=== PATIENT | male | born 1990 | race Caucasian/White ===

== ENCOUNTER 2019-09-14 15:24 | Emergency (ER) | payer OTHER ==
[~2019-09-14] VITALS: Ht 185.4 cm; Wt 88.5 kg
--- NOTE | ~2019-09-14 | EKG ---
[place] [address] ELECTROCARDIOGRAM REPORT Name: RUTHERFORDMARTINRENETTA VILLEGAS II Room: [facility]#: [id number] Admission: 09/14/19 Attend Phys: Discharge: Date of : 89 Date of Service: 09/14/191640 Report #: [id number] THIS REPORT FOR: cc: FAM - No family physician/PCP FAM - No family physician/PCP Lee Howard MD ~ THIS REPORT FOR: //name// [facility] ED Test Date: 2019-09-14 Test Time: 16:41:21 Pat Name: MARTIN RUTHERFORD Department: Room: Gender: M Web Development Intern: FABBY : 1990 Requested By: Dora Jimenez Order Number: [id number] MD: Measurements Intervals [place] Rate: 66 P: 35 SC: 172 QRS: 41 QRSD: 111 T: 45 QT: 370 QTc: 388 Interpretive Statements Sinus rhythm RSR' in V1 or V2, probably normal variant ST elev, probable normal early repol pattern No previous ECG available for comparison [email or web address] By: 40 164 [facility], [place] /[place]
[~2019-09-14 15:24] MED LIST: BACTRIM DS TAB1 EACH PO; HYDROCODONE-AP1 EAC6 PO; IBUPROFEN 600600 M1 PO; IBUPROFEN 800800 M1 PO; KEFLEX500 MG PO; NOHOMEMEDICATIONS; NORCO 5-325 TA1 EACH PO; ULTRAM 50MG TAB50 MG PO
[2019-09-14 16:11] LABS: INFLUENZA A ANTIGEN Negative (Negative); INFLUENZA B ANTIGEN Negative (Negative)
[2019-09-14 16:17] LABS: ABSOLUTE EOSINOPHILS 0.3 thou/uL (0.0-0.7); ABSOLUTE LYMPHOCYTES 1.3 thou/uL (0.8-5.3); ABSOLUTE MONOCYTES 0.4 thou/uL (0.0-1.2); ABSOLUTE NEUTROPHILS 5.9 thou/uL (1.6-8.1); BASOPHILS 0.6 %; EOSINOPHILS 3.9 %; HEMATOCRIT 41.5 % (42.0-52.0); HEMOGLOBIN 14.3 gm/dL (14.0-18.0); LYMPHOCYTES 16.5 %; MCH 30.5 pg (26.0-34.0); MCHC 34.4 g/dL (28.0-37.0); MCV 88.5 fL (80.0-100.0); MONOCYTES 5.5 %; MPV 8.7 fl. (7.2-11.1); NUCLEATED RBCS 0 /100WBC; PLATELET COUNT* 190 thou/uL (150-400); POLYS 73.5 %; RBC 4.69 mil/uL (4.50-6.00)
[2019-09-14 16:26] LABS: CALCIUM 8.4 mg/dL (8.5-10.1); CREATININE 0.9 mg/dL (0.6-1.3); POTASSIUM 4.1 mmol/L (3.5-5.1)
[2019-09-14 16:31] LABS: ALBUMIN 3.9 g/dL (3.4-5.0); TOTAL BILIRUBIN 0.2 mg/dL (<0.1-1.0); TOTAL PROTEIN 7.7 g/dL (6.4-8.2)
[2019-09-14] MEDS ORDERED: TRANSDERM-SCOP1 EACH TRANSDERM (16:42)
[2019-09-14] MEDS ORDERED: ONDANSETRON HCL4 M2 PO (16:42)
[2019-09-14 17:19] VITALS: BP 133/62
== END 2019-09-14 17:20 | disposition home or self-care (01) ==
LOC: M.ERS 15:24
PROVIDERS: Nurse Practitioner Family
DX: H81.10 Benign paroxysmal vertigo, unspecified ear (principal); Z91.041 Radiographic dye allergy status